=== PATIENT | male | born 1960 | race Caucasian/White ===

== ENCOUNTER 2018-12-25 09:09 | Inpatient (IN) ==
--- NOTE | 2018-12-16 07:51 | History & Physical Report ---
Date of Service December 16, 2018 date of surgery: 12-25-18 Assessment & Plan (1) Tricompartment osteoarthritis of right knee: Further care discussed with patient and at this point in time has failed conservative measures and would like to proceed with a right total knee replacement. Plan on discharge will be home with home health physical therapy. DVT prophalaxis with TEDs, SCDs and will also place on aspirin 81 mg p.o. b.i.d. for a month postop. Patient will have follow up appointment in our office two weeks post op for staple/suture removal and re-evaluation. Patient otherwise has no other questions or concerns. History of Present Illness Chief Complaint: right knee pain Primary Care Provider: Kaushik Galdamez Rodo is a 58 year old male who complains of right knee pain, presents for pre- op evaluation prior to a Right total knee replacement by dr Stark at [facility]. he complains of pain, crepitus, decreased range of motion, instability and stiffness in the right knee. he states that the symptoms have been chronic and non-traumatic. Rodo states that the symptoms occur constantly with intermittent worsening. Currently the patient states that the symptoms are moderate-severe and rates it as a 6/10. The pain is described as aching, sharp and throbbing. The symptoms occur continuously. The symptoms are aggravated by ascending stairs, daily activities, first steps while awake walking. Prior NSAIDs include Ibuprofen and Aleve. He has been treated with previous visco and cortisone injections in the past without much relief. he had prior right knee scope, PMM and PLM with chondroplasty in 2016. Allergies Allergy/AdvReac Type Severity Reaction Status Date / Time hydromorphone Allergy Unknown RASH,ITCHIN Verified 12/12/18 14:52 G,SOB moxifloxacin Allergy Unknown TROUBLE Verified 12/12/18 14:52 BREATHING,RASH, VERTIGO Ektiudf-Cxq-Eaj Reductase AdvReac Unknown "DRAINED Verified 12/12/18 15:53 Inhibitor MY LEGS" Home Medications Home Medications Medication Instructions Recorded Confirmed Type acetaminophen [Acetaminophen Extra 500 - 1,000 mg PO UD PRN 12/12/18 12/12/18 History Strength] aspirin-caffeine [Nehemias Back and 1 - 2 tab PO UD PRN 12/12/18 12/12/18 History Body] bisoprolol fumarate 5 mg PO QAM 12/12/18 12/12/18 History ergocalciferol (vitamin D2) 50,000 unit WK 12/12/18 12/12/18 History [Vitamin D2] eszopiclone 2 mg PO HS 12/12/18 12/12/18 History famotidine 20 mg PO QAM 12/12/18 12/12/18 History magnesium 250 mg PO QAM 12/12/18 12/12/18 History potassium 99 mg PO QAM 12/12/18 12/12/18 History vitamin E 400 unit PO QAM 12/12/18 12/12/18 History Past Med/Surg History Medical History Acid reflux Fear of needles History of anesthesia reaction WITH L TKA ([facility], 5-7 YR AGO) AND FOOT SURGERY ([facility], 4 YR AGO) - NERVE BLOCK DID NOT WORK FOR BOTH PROCEDURES - UNABLE TO OBTAIN FURTHER DETAILS History of asthma TRIGGERED BY PET DANDER LAST USE OF INHALER > 1 YR AGO, CURRENTLY NONE, PRESCRIPTION OUT DATED Hyperlipidemia Hypertension Leg cramps Light headedness & DIZZINESS - STRESS TEST & ECHO 2 WEEKS AGO Low vitamin D level Memory problem WORSENING WITH AGE Snores PT REPORTS NEEDS SLEEP APNEA TEST/PLANNING TO GET DONE AFTER KNEE SURGERY Surgical History History of biopsy TESTED FOR LYMPHOMA - NEGATIVE History of cardiac cath 10 YR AGO, BREATHING HARD - NO FINDINGS History of cholecystectomy History of colonoscopy History of foot surgery R FOOT (PIECE OF BONE FROM R HIP USED IN FOOT) History of total left knee replacement Family History Mother Family history of lung cancer Uncle Family history of Hodgkins disease Family history of prostate cancer Grandfather Family history of cancer Social History Preferred Language: Singaporean Communication Ability: Effective Cuprous Chloride Helper Required: No Beliefs That Will Affect Care: Temple Temple Beliefs: SABIANISM Current Living Situation: Spouse Other Information That Helps Us Care for You: No Feels Safe at Home: Yes Smoking Status: Former smoker Tobacco Type: cigarettes and cigars Cigarettes Per Day: OCCASSIONAL CIGAR, ONCE EVERY 5 YRS - ADVISED - NPO Do You Dip or Chew Tobacco: Yes (ADVISED NPO) Smoking End Date: A[age] - QUIT AT 17.5 YR Hx Alcohol Use: Yes Alcohol type: beer and wine Review of Systems Review of Systems: All systems reviewed & are unremarkable except as noted in HPI & below Constitutional: no fever, no chills and no sweats Respiratory: no cough and no dyspnea Cardiovascular: no chest pain, no dyspnea and no orthopnea Gastrointestinal: no abdominal pain, no nausea and no vomiting Musculoskeletal: as per Subjective / HPI Physical Exam Physical Exam: Ht: 5ft 9in Wt: 119.7kg BP: 150/78 Pulse: 82 Constitutional: WD/WN, vitals as above no acute distress Respiratory: normal respiratory effort, lungs clear to auscultation no respiratory distress, no labored breathing and does not use accessory muscles Cardiovascular: RRR, no murmur, no edema Gastrointestinal (Abdomen): normal bowel sounds, soft, nontender, no hepatosplenomegaly Musculoskeletal: Right Knee Exam He ambulates with a limp, overall varus alignment, no atrophy or ecchymosis, mild effusion, diffuse tenderness to the knee greatest over medial compartment, there is crepitation with motion, Patella position neutral, shant's negative, Gabriela's - lateral positive, Gabriela's - medial positive, Posterior drawer- negative, anterior drawer negative, valgus stress negative, varus stress negative, no extensor lag, pain with active range of motion, less pain with pass tianna painful ROM, Range of motion 0/3/110. No pain with active/passive ROM of ankle. Lower extremity strength normal. Lower extremity neuro-vascular is normal Results & Data Diagnostic Findings Right Knee series confirms advanced degenerative changes to the right knee, with narrowing of the medial compartment and patello-femoral joint with patellar spurring noted, findings showing joint space narrowing of the medial compartment and patello-femoral joint, osteophyte formation and subchondral sclerosis noted. overall varus alignment. no acute bony pathology noted.
--- NOTE | 2018-12-16 09:42 | PAT Medication Instructions ---
Medication Instructions Date of Service December 16, 2018 Home Medications acetaminophen [Acetaminophen Extra Strength] 500 - 1,000 mg PO NEEDED aspirin-caffeine [Nehemias Back and Body] 1 - 2 tab PO NEEDED bisoprolol fumarate 5 mg PO QAM ergocalciferol (vitamin D2) [Vitamin D2] 50,000 unit WK eszopiclone 2 mg PO HS famotidine 20 mg PO QAM magnesium 250 mg PO QAM potassium 99 mg PO QAM vitamin E 400 unit PO QAM Continue as directed ergocalciferol (vitamin D2) [Vitamin D2] 50,000 unit WK STOP taking 2 weeks before surgery vitamin E 400 unit PO QAM DO NOT take the morning of surgery magnesium 250 mg PO QAM potassium 99 mg PO QAM aspirin-caffeine [Nehemias Back and Body] 1 - 2 tab PO NEEDED Take morning of surgery With a small sip of water, OTHERWISE NOTHING TO EAT OR DRINK AFTER MIDNIGHT: famotidine 20 mg PO QAM bisoprolol fumarate 5 mg PO QAM acetaminophen [Acetaminophen Extra Strength] 500 - 1,000 mg PO NEEDED (if needed; stop 4 hours before surgery) Take evening before surgery eszopiclone 2 mg PO HS acetaminophen [Acetaminophen Extra Strength] 500 - 1,000 mg PO NEEDED (if needed) Other Notes If you have any questions please call us at [phone] or [phone] or [phone] or [phone]
--- NOTE | 2018-12-16 15:35 | Anesthesiology Consultation ---
Date of Service December 16, 2018 Assessment & Plan (1) Encounter for pre-operative examination: Chart Review Chart Review: Acceptable Risk for Surgery and Patient seen in Pre Admission Testing Consults Requested medical (Dr. Galdamez (12/18)) Patient was seen on 12/18 by PCPs office for preoperative evaluation prior to upcoming surgery. Per note from that visit, "Pre-op labs and CXR received, reviewed, and normal. Gunnar is fully cleared for procedure." Teaching & Discussion Pre-Anesthesia Teaching/Discussion Notes: Instructed NPO after midnight before surgery, except medications with 15 cc of water. Medication instructions provided according to the PAT guidelines. History Surgery Operation Date: 12/25/18 13:35 Proposed Procedures p Right Total Knee Arthroplasty; Left Knee Pes Bursa Cortisone Injection - Kaushik Stark DO Height/Weight Height: 5 ft 9 in Weight: 119.7 kg Allergies Allergy/AdvReac Type Severity Reaction Status Date / Time hydromorphone Allergy Unknown RASH,ITCHIN Verified 12/12/18 14:52 G,SOB moxifloxacin Allergy Unknown TROUBLE Verified 12/12/18 14:52 BREATHING,RASH, VERTIGO Evnhxbt-Vul-Quz Reductase AdvReac Unknown "DRAINED Verified 12/12/18 15:53 Inhibitor MY LEGS" Medications Home Medications Medication Instructions Recorded Confirmed Last Taken acetaminophen [Acetaminophen Extra 500 - 1,000 mg PO UD PRN 12/12/18 12/12/18 Unknown Strength] aspirin-caffeine [Nehemias Back and 1 - 2 tab PO UD PRN 12/12/18 12/12/18 Unknown Body] bisoprolol fumarate 5 mg PO QAM 12/12/18 12/12/18 12/12/18 ergocalciferol (vitamin D2) 50,000 unit WK 12/12/18 12/12/18 Unknown [Vitamin D2] eszopiclone 2 mg PO HS 12/12/18 12/12/18 12/11/18 famotidine 20 mg PO QAM 12/12/18 12/12/18 12/12/18 magnesium 250 mg PO QAM 12/12/18 12/12/18 Unknown potassium 99 mg PO QAM 12/12/18 12/12/18 Unknown vitamin E 400 unit PO QAM 12/12/18 12/12/18 Unknown Past Medical History Medical History Acid reflux Fear of needles History of asthma TRIGGERED BY PET DANDER, LAST USE OF INHALER > 1 YR AGO Hyperlipidemia Hypertension Leg cramps Low vitamin D level Memory problem WORSENING WITH AGE Osteoarthritis Snores PT REPORTS NEEDS SLEEP APNEA TEST/PLANNING TO GET DONE AFTER KNEE SURGERY Exercise / Class Metabolic Activity II 4-5 Yardwork/Stairs/Walk up hill (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 Very active. Can climb FOS. Denies CP or SOB. ) Past Family History Family History Mother Family history of lung cancer Uncle Family history of Hodgkins disease Family history of prostate cancer Grandfather Family history of cancer Past Surgical History Surgical History History of biopsy TESTED FOR LYMPHOMA - NEGATIVE History of cardiac cath 10 YR AGO, BREATHING HARD - NO FINDINGS History of cholecystectomy History of colonoscopy History of foot surgery 06/05/14: MAC #4, ETT #8.0, Oral, Grade 2 View History of total left knee replacement Past Anesthesia History No Hx of Anesthesia Complications and No Family Hx of Anesthesia Complications History of PONV No Hx of PONV and No Hx of Motion Sickness Social History Smoking Status: Former smoker tobacco type: cigarettes and cigars Smoking cigarettes per day: OCCASSIONAL CIGAR, ONCE EVERY 5 YRS - ADVISED - NPO Do You Dip or Chew Tobacco: Yes (ADVISED NPO) Smoking End Date: [age] - QUIT AT 17.5 YR Hx Alcohol Use: Yes Alcohol type: beer and wine alcohol intake frequency: other Alcohol Intake Frequency Comment: 5 DRINKS A WEEK Hx Substance Use: No substance use type: does not use Review of Systems Patient denies chest pain, shortness of breath, dyspnea on exertion, cough, wheezing, palpitations. +Joint Pain (Knees, Hands/Fingers, Back) +Acid Reflux (Controlled with current medications) Physical Exam Vital Signs BP: 128/73 P: 55 R: 14 T: 98.3 SPO2: 98% on RA Constitutional + obese ENMT Thyromental Distance: > or= 3.5 Finger Breadths (4) Mallampati Class: I Neck normal visual inspection, trachea midline and + facial hair (Advised to trim); neck extension not limited Respiratory normal respiratory effort Auscultation: lungs clear to auscultation bilaterally Cardiovascular Rate/Rhythm: regular rate and regular rhythm Heart Sounds: no murmur Vessels: no carotid bruit Neurologic moves all extremities Psychiatric Orientation: alert and oriented x 3 Testing Laboratory Results 12/16/18 15:14 12/16/18 15:14 PT 10.9 Seconds (9.0-12.0) 12/16/18 15:14 INR 1.1 (0.9-1.1) 12/16/18 15:14 APTT 27.0 Seconds (21.0-31.0) 12/16/18 15:14 Hemoglobin A1c 6.7 % (4.5-5.6) H 12/16/18 15:14 Urine Color Yellow 12/16/18 Unknown Urine Appearance Clear (Clear) 12/16/18 Unknown Urine pH 5.0 (4.5-7.5) 12/16/18 Unknown Ur Specific [employer] 1.023 (1.000-1.030) 12/16/18 Unknown Urine Protein Negative (Negative) 12/16/18 Unknown Urine Glucose (UA) Negative (Negative) 12/16/18 Unknown Urine Ketones Negative (Negative) 12/16/18 Unknown Urine Nitrite Negative (Negative) 12/16/18 Unknown Ur Leukocyte Esterase Negative (Negative) 12/16/18 Unknown Blood Type A Positive 12/16/18 15:14 Antibody Screen NEGATIVE 12/16/18 15:14 12/16/18 Unknown Urine Culture - Final Urine,Clean Catch No growth - less than 1,000 colonies/mL. Electrocardiogram Date: 10/16/18 Findings: + NSR @ (58) Incomplete RBBB Chest X-Ray Date: 12/16/18 Findings: + NAD Echocardiogram Date: 11/04/18 Normal echocardiographic study
[2018-12-16 15:58] LABS: Basophils # (auto) 0.05 K/uL (0-0.2); Basophils % (auto) 0.8 %; Eosinophils % (auto) 1.5 %; Hematocrit (blood only) 40.8 % (42-52); Hemoglobin 14.3 g/dL (14.0-18.0); Immature Granulocytes # (auto) 0.02 K/uL (0.00-0.02); Immature Granulocytes % (auto) 0.3 %; Lymphocytes % (auto) 22.7 %; Mean Corpuscular Volume 89.5 fL (80-100); Mean Platelet Volume 11.5 fL (7.4-10.4); Monocytes # (auto) 0.49 K/uL (0.11-0.59); Monocytes % (auto) 7.4 %; Neutrophils # (auto) 4.46 K/uL (1.4-6.5); Neutrophils % (auto) 67.3 %; Platelet Count 225 K/uL (130-400); RDW Coefficient of Variation 12.9 % (11.5-14.5); RDW Standard Deviation 41.5 fL (36.4-46.3); Red Blood Count 4.56 M/uL (4.7-6.1); White Blood Count 6.62 K/uL (4.8-10.8)
[2018-12-16 16:01] LABS: Appearance Urine Clear (Clear); Bilirubin Urine Negative (Negative); Blood Urine Negative (Negative); Color Urine Yellow; Glucose Urine UA Negative (Negative); Ketones Urine Negative (Negative); Leukocyte Esterase Urine Negative (Negative); Nitrite Urine Negative (Negative); Protein Urine Negative (Negative); Specific Gravity Urine 1.023 (1.000-1.030); Urobilinogen Urine Negative (Negative)
[2018-12-16 16:09] LABS: Albumin Level 3.7 gm/dl (3.4-5.0); BUN Creatinine Ratio 16.5 (10-20); Calcium 9.1 mg/dl (8.5-10.1); Creatinine Clr Calc Pharmacy 122.4 ml/min; Est GFR (African American) 111.6; Est GFR (Non-African American) 96.3
[2018-12-16 16:12] LABS: INR 1.1 (0.9-1.1); Prothrombin Time 10.9 Seconds (9.0-12.0)
--- NOTE | 2018-12-16 16:27 | XRay Report ---
TWO VIEW CHEST CLINICAL HISTORY: Preoperative examination. FINDINGS: PA and lateral chest radiographs are obtained. No prior studies are available for compariso n at the time of dictation. The cardiomediastinal silhouette is unremarkable. The lungs and pleura l spaces are clear. There is no pneumothorax. The bony thorax appears intact. Cholecystectomy clips a re seen in the right upper quadrant. IMPRESSION: No active disease in the chest. Electronically signed by: Qasim Aguayo M.D. 12/16/2018 4:26 PM
[2018-12-17 08:00] LABS: Estimated Average Glucose 146 mg/dl; Hemoglobin A1C 6.7 % (4.5-5.6)
[~2018-12-25 09:09] MED LIST: ACETAMINOPHEN 500 MG TAB PO SCH; BUPIVACAINE 0.5 % 5 MG/1 ML PF 10ML VIAL ONE; CEFAZOLIN 3000MG 72.5 ML IV SCH; CeleBREX 200 MG CAP PO SCH; EPINEPHrine INJ 1 MG/ML AMP ONE; FAMOTIDINE 20 MG TAB PO SCH; GABAPENTIN 600 MG DOSE PO SCH; LR 500ML BOLUS, THEN 15ML/HR IV SCH; METOCLOPRAMIDE HCL 10 MG TABLET PO SCH; ROPIVACAINE 0.5% 5 MG/ML 30 ML VIAL ONE; dexAMETHasone 4 MG TAB PO SCH
[2018-12-25] MEDS ORDERED: MIDAZOLAM HCL 1 MG/ML 2ML VIAL ONE ×2 (10:01→10:18)
[2018-12-25] MEDS ORDERED: DEXAMETHASONE SOD INJ 4 MG/ML VIAL ONE (10:01)
[2018-12-25] MEDS ORDERED: GLYCOPYRROLATE 0.2 MG/ML VIAL ONE (10:01)
[2018-12-25] MEDS ORDERED: LIDOCAINE HCL 2% 2 ML VIAL/AMP(20MG/ML) INFIL ONE (10:01)
[2018-12-25] MEDS ORDERED: PROPOFOL IV EMULSION 10 MG/ML 20 ML VIAL IV ONE ×3 (10:01→12:51)
[2018-12-25] MEDS ORDERED: ONDANSETRON INJ 2 MG/ML 2 ML VIAL ONE (10:01)
[2018-12-25] MEDS ORDERED: KETAMINE HCL INJ 50 MG/ML 10 ML VIAL ONE (10:02)
--- NOTE | 2018-12-25 10:36 | History & Physical Bridge Note ---
Date of Service December 25, 2018 History & Physical Bridge Note I have examined the patient, reviewed the History & Physical and in the interval since the performance of the History & Physical I have noted the following changes of clinical significance: no changes noted
[2018-12-25] MEDS ORDERED: ATROPINE SULFATE 0.1 MG/ML 10ML SYR IV PRN (10:55)
[2018-12-25] MEDS ORDERED: PHENYLEPHRINE 100MCG/ML 5ML SYR IV PRN (10:55)
[2018-12-25] MEDS ORDERED: ePHEDrine sulfate 50 MG/ML AMP IV PRN (10:55)
[2018-12-25] MEDS ORDERED: ONDANSETRON INJ 2 MG/ML 2 ML VIAL IV PRN ×2 (10:55→14:27)
[2018-12-25] MEDS ORDERED: LABETALOL HCL IV 5 MG/ML 20ML IV PRN (10:55)
[2018-12-25] MEDS ORDERED: fentaNYL citrate 100 MCG/2 ML VIAL IV PRN (10:55)
[2018-12-25] MEDS ORDERED: BACITRACIN INJ 50,000 UNIT VIAL ONE (11:23)
[2018-12-25] MEDS ORDERED: fentaNYL citrate 100 MCG/2 ML VIAL ONE (11:28)
[2018-12-25] MEDS ORDERED: TRIAMCINOLONE ACET 40 MG/ML VIAL ONE (11:42)
[2018-12-25] MEDS ORDERED: BUPIVACAINE 0.5 % 5 MG/1 ML MPF 30ML VIAL ONE (11:42)
[2018-12-25] MEDS ORDERED: ROPIVACAINE 0.5% HCL/PF 150 MG, BUPIVACAINE 0.5% MPF 30 ML, EPINEPHrine 30MG/30ML (OR U... INFIL SCH (12:30)
--- NOTE | 2018-12-25 13:04 | Operative Report ---
Post Operative Report Pre & Post Diagnosis Operation Date: 12/25/18 12:20 Pre-Op Diagnosis: Right Knee Osteoarthritis, Left knee Pes Bursitis Post-Op Diagnosis: Right Knee Osteoarthritis, Left knee Pes Bursitis Procedure Operation Date: 12/25/18 12:20 Actual Procedures p Right Total Knee Arthroplasty; Left Knee Pes Bursa Cortisone Injection using 80 mg Kenalog 3 cc half percent plain Marcaine right total knee arthroplasty utilizing [employer] journey to non-block total knee arthroplasty size 6 femur size 6 tibia size 10 poly-35 oval patella- Kaushik Stark DO Surgeon Kaushik Stark DO Vinyl Cutter Awais NAJERA Estimated Blood Loss 5 Findings Consistent with Post-Op Diagnosis Patient presents with severe end-stage tricompartmental degenerative joint disease right knee varus alignment subchondral sclerosis cystic changes marginal osteophytes moderate to large effusion varus alignment no response to conservative management Specimens Bone cartilage Drains Medium bore Hemovac Complications none Disposition Accompanied Patient To Recovery: No Disposition: Recovery Room Indications Patient presents 58-year-old white male with severe end-stage tricompartmental degenerative joint disease of the right knee is been no response to conservative management including Visco supplementation cortical steroid injection relative rest activity modification the above intraoperative findings noted as well as a left knee peds anserine bursitis Description of Procedure After proper prepping and draping of the right lower extremity and identification of the patientAfter proper prepping and draping of the Right lower extremity anterior midline incision was made over the region of the extensor extensor mechanism after meticulous hemostasis was obtained and maintained in subcutaneous tissues a medial parapatellar incision was made The patella was subluxed lateralward the medial lateral gutter were cleaned from any hypertrophic synovitis and scar tissue of the distal femoral block was placed and the distal femoral osteotomy cut was made subsequently the chamfers anterior and posterior osteotomy cuts were made utilizing the 4-in-1 block the tibia was subsequently subluxed anteriorward medial and ateral meniscal remnants were excised in their entirety remnants of the anterior and posterior cruciate ligaments were excised in their entirety excellent exposure of the proximal tibia was obtained the tibial osteotomy guide was placed on the proximal tibial osteotomy cut was made once again the knee was irrigated with copious amounts of sterile saline solution the patella was subsequently everted lateralward thickened scar tissue around the patella was removed the patella was subsequently cut utilizing a freehand technique and was drilled prepared for final preparation and placement of patella socially flexion-extension gaps were checked and the equal and symmetric trials were placed to the appropriate femoral and tibial trials with poly-spacer being placed for equal flexion and extension gaps and full range of motion including extension to 0 and flexion to 140 the trial components after having been taken to recovery range of motion was subsequently removed meticulous hemostasis was obtained and maintained subsequently a knee block injection of joint cocktail including ropivacaine 0.5% 150 mg. Bupivacaine 0.5% epinephrine 1-200,030 mL's toradol 30 mg dexamethasone 4 mg ketamine 10 mg clonidine 100 micrograms normal saline solution 30 mg was infiltrated into the soft tissues of the posterior knee medial lateral gutters and periosteal synovium special attention was paid to protect neurovascular structures at all times subsequently trial components having been removed the knee was irrigated with sterile saline solution. debris was removed the proximal tibia was subsequently prepared and was made ready for the placement of the tibial component tibial component was also cemented and tamped into position the femoral component was subsequently placed and cemented in the position the patellar component was subsequently cemented in position because hemostasis once again obtained and maintained wound having been thoroughly irrigated with debridement and debridement lavage was performed as well as a medial parapatellar incision closed with #1 Vicryl in interrupted fashion subcutaneous was closed with #2 Vicryl skin was closed with skin clips. PA-C was necessary for prepping and drapping as well as wound closure of deep fascia Sub cutaneous tissue and skin and was necessary for the case. A sterile compressive dressing was placed patient was taken to recovery in stable condition of report dictated by Lincoln the left pes anserine bursa was injected under sterile conditions using 80 mg of Kenalog 3 cc of half percent plain Marcaine I attest to the content of the Intraoperative Record and any orders documented therein. Any exceptions are noted below. I attest to the content of the Intraoperative Record and any orders documented therein. Any exceptions are noted below.
[2018-12-25] MEDS ORDERED: MEPERIDINE HCL 25 MG/ML CARP IV PRN (13:42)
--- NOTE | 2018-12-25 13:59 | Anesthesiology Progress Note ---
Date of Service December 25, 2018 Anesthesia Post Procedure Vital Signs Vital Signs: Temp Pulse Pulse Resp BP Pulse Ox 12/25/18 13:50 61 18 115/60 97 12/25/18 13:43 36.7 C 60 12 121/63 97 12/25/18 10:06 36.6 C 82 20 159/88 H 94 Pain Intensity Right Knee: Pain Intensity: 2 Transfer of Care Handoff Completed per policy Notes Mental Status: alert / awake / arousable Patient Amnestic to Procedure: Yes Nausea / Vomiting: adequately controlled Pain: adequately controlled Airway Patency, RR, SpO2: stable & adequate BP & HR: stable & adequate Hydration State: stable & adequate Neuraxial Anesthesia: was administered and sensory block is resolving Anesthetic Complications: no major complications apparent and Pt Satisfied with anesthetic care
--- NOTE | 2018-12-25 14:15 | XRay Report ---
XR knee RT 2V routine HISTORY: 58 years-old Male Surgical Post Op right knee total joint arthroplasty. COMPARISON: None available TECHNIQUE: 2 views of the right knee FINDINGS: Right knee total joint arthroplasty and patellar resurfacing. Expected postsurgical soft tissue swell ing and deep tissue air with surgical drainage catheter in place. Satisfactory alignment without acut e fracture or retained foreign body. IMPRESSION: Satisfactory alignment of the right knee total joint arthroplasty. The above report was generated using voice recognition software. It may contain grammatical, syntax o r spelling errors. Electronically signed by: Alfonso Santos M.D. 12/25/2018 2:14 PM
[2018-12-25] MEDS ORDERED: METOCLOPRAMIDE HCL INJ 5 MG/ML 2 ML VIAL IV PRN (14:27)
[2018-12-25] MEDS ORDERED: NALOXONE HCL 0.4 MG/1 ML VIAL/CARP IV PRN (14:27)
[2018-12-25] MEDS ORDERED: MAGNESIUM HYDROXIDE SUSP 30 ML UDC PO PRN (14:27)
[2018-12-25] MEDS ORDERED: BISACODYL 10 MG SUPP PR PRN (14:27)
[2018-12-25] MEDS ORDERED: ALUMINUM/MAGNESIUM SUSP 30 ML UDC PO PRN (14:27)
[2018-12-25] MEDS: SODIUM CHLORIDE 0.9% 1000ML 1,000 ML IV SCH (17:05)
[2018-12-25] MEDS: KETOROLAC 30 MG/ML VIAL IV SCH ×2 (19:33→23:15)
[2018-12-25] MEDS: CEFAZOLIN 2000MG 2,000 MG/15 ML SYR IV SCH (19:35)
[2018-12-25] MEDS: SENNA 8.6 MG TAB PO SCH (21:01)
[2018-12-25] MEDS: ASPIRIN 81 MG ECTAB PO SCH (21:01)
[2018-12-25] MEDS: DOCUSATE SODIUM 100 MG CAP PO SCH (21:02)
[2018-12-25] MEDS: ACETAMINOPHEN 500 MG TAB PO SCH (21:02)
[2018-12-25] MEDS: ESZOPICLONE 2 MG TABLET PO SCH (23:14)
[2018-12-26] MEDS: SODIUM CHLORIDE 0.9% 1000ML 1,000 ML IV SCH (02:44)
[2018-12-26] MEDS: OXYCODONE HCL IR 5 MG TAB (IMMEDIATE RELEASE) PO PRN ×3 (03:09→23:41)
[2018-12-26] MEDS: CEFAZOLIN 2000MG 2,000 MG/15 ML SYR IV SCH (03:10)
[2018-12-26] MEDS: KETOROLAC 30 MG/ML VIAL IV SCH ×2 (05:20→11:53)
[2018-12-26] MEDS: ACETAMINOPHEN 500 MG TAB PO SCH ×3 (05:20→21:36)
[2018-12-26 07:47] LABS: Hemoglobin 11.1 g/dL (14.0-18.0); Mean Corpuscular Hgb Conc 34.7 g/dL (32-36); Mean Corpuscular Volume 89.4 fL (80-100); Mean Platelet Volume 11.7 fL (7.4-10.4); Platelet Count 191 K/uL (130-400); RDW Coefficient of Variation 12.5 % (11.5-14.5); RDW Standard Deviation 40.4 fL (36.4-46.3); Red Blood Count 3.58 M/uL (4.7-6.1); White Blood Count 14.04 K/uL (4.8-10.8)
[2018-12-26 07:52] LABS: BUN Creatinine Ratio 17.1 (10-20); Calcium 8.5 mg/dl (8.5-10.1); Creatinine Clr Calc Pharmacy 114.4 ml/min; Potassium 4.4 mmol/L (3.5-5.1)
--- NOTE | 2018-12-26 07:55 | Orthopedic Progress Note ---
Date of Service December 26, 2018 Assessment & Plan (1) Status post total right knee replacement: POD #1 s/p Right TKA pt/ot dvt proph with [facility]/SCD/ASA plan for d/c home with HHPT when stable Subjective POD #1 s/p Right TKA and left knee pes bursa injection denies any pain in the left knee Review of Systems Constitutional: no fever, no chills and no sweats Respiratory: no cough and no dyspnea Cardiovascular: no chest pain and no dyspnea Gastrointestinal: no abdominal pain, no nausea and no vomiting Physical Exam Physical Exam: Vital Signs Temp Pulse Pulse Pulse Resp BP Pulse Ox 12/26/18 03:36 36.4 C L 64 18 102/62 93 12/25/18 22:55 36.9 C 62 16 119/63 96 12/25/18 21:20 96 12/25/18 20:45 36.8 C 78 18 125/66 92 12/25/18 20:31 36.8 C 78 18 125/66 92 12/25/18 18:07 36.6 C 67 18 120/66 94 12/25/18 16:23 36.4 C L 68 17 118/67 97 12/25/18 15:15 36.5 C 61 17 131/74 97 12/25/18 14:47 36.5 C 60 16 122/73 94 12/25/18 14:15 36.6 C 59 L 16 112/68 95 12/25/18 14:00 36.7 C 57 L 12 110/56 L 97 12/25/18 13:50 61 18 115/60 97 12/25/18 13:43 36.7 C 60 12 121/63 97 12/25/18 10:06 36.6 C 82 20 159/88 H 94 Intake and Output 12/25/18 12/26/18 12/26/18 22:59 06:59 14:59 Intake Total 1290 / 3112.5 Output Total 2075 / 3010 675 / 3010 Balance -2075 / 102.5 615 / 102.5 Intake: IV 1290 / 2162.5 Nss 1000ML 1,0 00 ml @ 100 mls/ 1290 / 1290 hr IV .Q10H [facility] Rx#:[id number] Output: Urine 1300 / 1900 600 / 1900 Drain Output 775 / 1105 75 / 1105 Right Knee Hem ovac 775 / 1105 75 / 1105 Constitutional: WD/WN, vitals as above no acute distress Musculoskeletal: Right Leg: NVDI, calf SNT, negative kike sign. DP palpable, able to wiggle toes/ankle movement without difficulty. dressing clean dry and intact. Results & Data Vital Signs (Past 12 Hours) Vital Signs Temp Pulse Pulse Resp BP Pulse Ox 12/26/18 03:36 36.4 C L 64 18 102/62 93 12/25/18 22:55 36.9 C 62 16 119/63 96 12/25/18 21:20 96 12/25/18 20:45 36.8 C 78 18 125/66 92 12/25/18 20:31 36.8 C 78 18 125/66 92 Laboratory Results Laboratory Results WBC 14.04 K/uL (4.8-10.8) H 12/26/18 06:48 RBC 3.58 M/uL (4.7-6.1) L 12/26/18 06:48 Hgb 11.1 g/dL (14.0-18.0) L 12/26/18 06:48 Hct 32.0 % (42-52) L 12/26/18 06:48 MCV 89.4 fL (80-100) 12/26/18 06:48 MCH 31.0 pg (25-34) 12/26/18 06:48 MCHC 34.7 g/dL (32-36) 12/26/18 06:48 RDW Std Deviation 40.4 fL (36.4-46.3) 12/26/18 06:48 RDW Coeff of Demarco 12.5 % (11.5-14.5) 12/26/18 06:48 Plt Count 191 K/uL (130-400) 12/26/18 06:48 MPV 11.7 fL (7.4-10.4) H 12/26/18 06:48 Immature Gran % (Auto) 0.3 % 12/16/18 15:14 Neut % (Auto) 67.3 % 12/16/18 15:14 Lymph % (Auto) 22.7 % 12/16/18 15:14 [place] % (Auto) 7.4 % 12/16/18 15:14 Eos % (Auto) 1.5 % 12/16/18 15:14 Baso % (Auto) 0.8 % 12/16/18 15:14 Immature Gran # (Auto) 0.02 K/uL (0.00-0.02) 12/16/18 15:14 Neut # (Auto) 4.46 K/uL (1.4-6.5) 12/16/18 15:14 Lymph # (Auto) 1.50 K/uL (1.2-3.4) 12/16/18 15:14 [place] # (Auto) 0.49 K/uL (0.11-0.59) 12/16/18 15:14 Eos # (Auto) 0.10 K/uL (0-0.5) 12/16/18 15:14 Baso # (Auto) 0.05 K/uL (0-0.2) 12/16/18 15:14 PT 10.9 Seconds (9.0-12.0) 12/16/18 15:14 INR 1.1 (0.9-1.1) 12/16/18 15:14 APTT 27.0 Seconds (21.0-31.0) 12/16/18 15:14 PTT Ratio 1.0 12/16/18 15:14 Sodium 139 mmol/L (136-145) 12/26/18 06:48 Potassium 4.4 mmol/L (3.5-5.1) 12/26/18 06:48 Chloride 108 mmol/L (98-107) H 12/26/18 06:48 Carbon Dioxide 25 mmol/L (21-32) 12/26/18 06:48 Anion Gap 5.0 (3-11) 12/26/18 06:48 BUN 15 mg/dl (7-18) 12/26/18 06:48 Creatinine 0.88 mg/dl (0.6-1.4) 12/26/18 06:48 Est Cr Clr Drug Dosing 114.4 ml/min 12/26/18 06:48 Est GFR ( Amer) 109.0 12/26/18 06:48 Est GFR (Non-Af Amer) 94.0 12/26/18 06:48 BUN/Creatinine Ratio 17.1 (10-20) 12/26/18 06:48 Glucose 165 mg/dl (70-99) H 12/26/18 06:48 Estimat Average Glucose 146 mg/dl 12/16/18 15:14 Hemoglobin A1c 6.7 % (4.5-5.6) H 12/16/18 15:14 Calcium 8.5 mg/dl (8.5-10.1) 12/26/18 06:48 Albumin 3.7 gm/dl (3.4-5.0) 12/16/18 15:14 Urine Color Yellow 12/16/18 Unknown Urine Appearance Clear (Clear) 12/16/18 Unknown Urine pH 5.0 (4.5-7.5) 12/16/18 Unknown Ur Specific [place] 1.023 (1.000-1.030) 12/16/18 Unknown Urine Protein Negative (Negative) 12/16/18 Unknown Urine Glucose (UA) Negative (Negative) 12/16/18 Unknown Urine Ketones Negative (Negative) 12/16/18 Unknown Urine Blood Negative (Negative) 12/16/18 Unknown Urine Nitrite Negative (Negative) 12/16/18 Unknown Urine Bilirubin Negative (Negative) 12/16/18 Unknown Urine Urobilinogen Negative (Negative) 12/16/18 Unknown Ur Leukocyte Esterase Negative (Negative) 12/16/18 Unknown Blood Type A Positive 12/16/18 15:14 Antibody Screen NEGATIVE 12/16/18 15:14 Vital Signs Temp 36.4 C L 12/26/18 03:36 Pulse 64 12/26/18 03:36 Resp 18 12/26/18 03:36 BP 102/62 12/26/18 03:36 Pulse Ox 93 12/26/18 03:36 Intake & Output 12/25/18 12/26/18 12/26/18 18:59 06:59 18:59 Intake Total 1822.5 / 3112.5 1290 / 3112.5 Output Total 1660 / 3010 1350 / 3010 Balance 162.5 / 102.5 -60 / 102.5 Weight 117.662 kg Intake: IV 872.5 / 2162.5 1290 / 2162.5 Ancef 3000MG 72.5 ml @ 130 mls/ 72.5 / 72.5 hr IV PREOP [facility] Rx#:[id number] Lr 1,000 ml @ 15 mls/hr IV . 800 / 800 Q24H [facility] Rx#:[id number] Nss 1000ML 1,000 ml @ 100 mls/ 1290 / 1290 hr IV .Q10H [facility] Rx#:[id number] IV Perioperative 950 / 950 Output: Urine 900 / 1900 1000 / 1900 Estimated Blood Loss 5 / 5 Drain Output 755 / 1105 350 / 1105 Right Knee Hemovac 755 / 1105 350 / 1105 Diagnostic Findings XR knee RT 2V routine HISTORY: 58 years-old Male Surgical Post Op right knee total joint arthroplasty. COMPARISON: None available TECHNIQUE: 2 views of the right knee FINDINGS: Right knee total joint arthroplasty and patellar resurfacing. Expected postsurgical soft tissue swelling and deep tissue air with surgical drainage catheter in place. Satisfactory alignment without acute fracture or retained fo reign body. IMPRESSION: Satisfactory alignment of the right knee total joint arthroplasty.
[2018-12-26] MEDS: TOCOPHERYL, DL-ALPHA 400 UNITS CAP PO SCH (08:33)
[2018-12-26] MEDS: DOCUSATE SODIUM 100 MG CAP PO SCH ×2 (08:33→20:39)
[2018-12-26] MEDS: FAMOTIDINE 20 MG TAB PO SCH (08:33)
[2018-12-26] MEDS: ASPIRIN 81 MG ECTAB PO SCH ×2 (08:33→20:39)
[2018-12-26] MEDS: MAGNESIUM OXIDE 400 MG TAB PO SCH (08:33)
[2018-12-26] MEDS: MULTIVITAMIN TAB PO SCH (08:33)
[2018-12-26] MEDS ORDERED: NON-FORMULARY MEDICATION (Potassium 99 MG) PO SCH (09:00)
--- NOTE | 2018-12-26 09:37 | Anesthesiology Progress Note ---
Date of Service December 26, 2018 Anesthesia Post Procedure Vital Signs Vital Signs: Temp Pulse Pulse Pulse Resp BP Pulse Ox 12/26/18 07:00 36.6 C 58 L 16 127/68 97 12/26/18 03:36 36.4 C L 64 18 102/62 93 12/25/18 22:55 36.9 C 62 16 119/63 96 12/25/18 21:20 96 12/25/18 20:45 36.8 C 78 18 125/66 92 12/25/18 20:31 36.8 C 78 18 125/66 92 12/25/18 18:07 36.6 C 67 18 120/66 94 12/25/18 16:23 36.4 C L 68 17 118/67 97 12/25/18 15:15 36.5 C 61 17 131/74 97 12/25/18 14:47 36.5 C 60 16 122/73 94 12/25/18 14:15 36.6 C 59 L 16 112/68 95 12/25/18 14:00 36.7 C 57 L 12 110/56 L 97 12/25/18 13:50 61 18 115/60 97 12/25/18 13:43 36.7 C 60 12 121/63 97 12/25/18 10:06 36.6 C 82 20 159/88 H 94 Pain Intensity Right Knee: Pain Intensity: 2 Notes Mental Status: alert / awake / arousable and participated in evaluation Patient Amnestic to Procedure: Yes Nausea / Vomiting: adequately controlled Pain: adequately controlled Airway Patency, RR, SpO2: stable & adequate BP & HR: stable & adequate Hydration State: stable & adequate Neuraxial Anesthesia: was administered and sensory block resolved Anesthetic Complications: no major complications apparent and Pt Satisfied with anesthetic care
[2018-12-26] MEDS ORDERED: PHARMACY GLYCEMIC MGMT CONSULT PRN (09:51)
[2018-12-26] MEDS ORDERED: GLUCOSE 40% GEL 15 GM TUBE PO PRN (10:00)
[2018-12-26] MEDS ORDERED: GLUCOSE 10 TABS/TUBE PO PRN (10:00)
[2018-12-26] MEDS ORDERED: CARBOHYDRATES FOR HYPOGLYCEMIA PO PRN (10:00)
[2018-12-26] MEDS ORDERED: GLUCAGON FOR INJ 1 MG VIAL IM PRN (10:00)
[2018-12-26] MEDS ORDERED: DEXTROSE 50% 50 ML SYRINGE IV PRN (10:00)
[2018-12-26] MEDS: LANTUS PER UNIT CHARGE SQ ONE ×2 (10:41→10:44)
[2018-12-26] MEDS: INSULIN ASPART 100 UNITS/ML 3 ML PEN SC SCH ×3 (12:35→20:43)
--- NOTE | 2018-12-26 14:40 | Pharmacy Report ---
Glycemic Control Consultation - Date of Service December 26, 2018 - Scope Scope: Glycemic Pharmacist consulted by Troy Dailey on 12/26/18 for glycemic control and to write orders per [facility] inpatient glycemic control protocol - Objective Weight: 117.662 kg Accuchecks BSG (last 24hrs): 12/26/18 12/26/18 06:48 12:01 Glucose 165 H POC Glucose 162 H Laboratory Data (last 24hrs): 12/26/18 06:48 Potassium 4.4 Carbon Dioxide 25 Anion Gap 5.0 Creatinine 0.88 Est Cr Clr Drug Dosing 114.4 HbA1c: Hemoglobin A1c 6.7 % (4.5-5.6) H 12/16/18 15:14 - Recent Pertinent Medications Outpatient Anti-diabetic Regimen: * N/A * A1c = 6.7 % 12/16/18 The patient is currently receiving: * Basal insulin: Lantus -- units every -- hours * Correctional Insulin: Novolog Correction per scale ACHS Goal Range: Low -- mg/dL - High -- mg/dL Correction Factor: -- mg/dL/unit * Prandial insulin: Per carb ratio of 1 unit per -- grams CHO consumed * Oral Agents: Risk Factors for Insulin Resistance: * Steroids: dexamethasone 8 mg preop; dexamethasone 4 mg topically; dexamethasone 4 mg IV intraop * Recent Surgery: POD 1 * Diet: changed to T2DM - Assessment & Plan Assessment & Plan: ASSESSMENT: * Mr Friedman is a 58 y/o M with a PMH of undiagnosed diabetes who presents for knee surgery, planned discharge tomorrow. Patient received significant amount of steroids prior to and during surgery. Fasting blood sugar today 165 mg/dL. Lunch blood sugar 162 mg/dL. * For lunch, utilized weight-based stress of 2 Novolog for coverage, will loosen for dinner onwards since effects of steroids will decrease. Patient declined Lantus coverage. * Spent significant time talking with patient about the benefits of insulin coverage. He will start to check his blood sugars at home - perhaps twice daily. I advised him to follow-up with his PCP regarding his HbA1C being slightly elevated. PLAN FOR INPATIENT GLYCEMIC CONTROL: * Basal insulin * Declined * Bolus insulin * NovoLog per scale ACHS or Q6hrs while NPO * Goal Range: Low 110 mg/dL - High 140 mg/dL * Correction Factor: 30 mg/dL/unit * Nutritional / Prandial insulin per carb ratio of 1 unit per 10 grams CHO consumed Outpatient Recommendation * Follow-up with primary care doctor for further treatment. Most likely would benefit from metformin XR 500 mg PO BIDM titrating upwards to maximum daily dose of 1000 mg BID Thank you.
[2018-12-26] MEDS: BISOPROLOL FUMARATE 5 MG PO SCH (16:38)
[2018-12-26] MEDS: CeleBREX 200 MG CAP PO SCH (20:08)
[2018-12-26] MEDS: SENNA 8.6 MG TAB PO SCH (20:39)
[2018-12-26] MEDS: ESZOPICLONE 2 MG TABLET PO SCH (23:41)
[2018-12-27] MEDS: ACETAMINOPHEN 500 MG TAB PO SCH (05:23)
--- NOTE | 2018-12-27 06:49 | Orthopedic Progress Note ---
Date of Service December 27, 2018 Assessment & Plan (1) Status post total right knee replacement: POD #2 s/p Right TKA pt/ot dvt proph with [facility]/SCD/ASA plan for d/c home with HHPT when stable, after PT today Subjective POD #2 s/p Right TKA and left knee pes bursa injection denies any pain in the left knee Review of Systems Constitutional: no fever, no chills and no sweats Respiratory: no cough and no dyspnea Cardiovascular: no chest pain and no dyspnea Gastrointestinal: no abdominal pain, no nausea and no vomiting Physical Exam Physical Exam: Vital Signs Temp Pulse Pulse Resp BP Pulse Ox 12/26/18 23:22 36.8 C 65 16 133/68 95 12/26/18 16:37 64 131/67 12/26/18 15:18 36.8 C 67 16 148/69 H 94 12/26/18 12:00 36.9 C 59 L 16 142/73 H 94 12/26/18 07:00 36.6 C 58 L 16 127/68 97 Intake and Output 12/26/18 12/26/18 12/27/18 14:59 22:59 06:59 Intake Total 515 / 755 240 / 755 Output Total 600 / 1800 1200 / 1800 Balance -85 / -1045 240 / -1045 -1200 / -1045 Intake: Oral 515 / 755 240 / 755 Output: Urine 600 / 1800 1200 / 1800 Other: Weight 117.662 kg Patient Weight 12/27/18 06:59 Weight 117.662 kg Musculoskeletal: Right Leg: NVDI, calf SNT, negative kike sign. DP palpable, able to wiggle toes/ankle movement without difficulty. MANJIT dressing clean dry and intact. Results & Data Vital Signs (Past 12 Hours) Vital Signs Temp Pulse Resp BP Pulse Ox 12/26/18 23:22 36.8 C 65 16 133/68 95 Laboratory Results Laboratory Results WBC 14.04 K/uL (4.8-10.8) H 12/26/18 06:48 RBC 3.58 M/uL (4.7-6.1) L 12/26/18 06:48 Hgb 11.1 g/dL (14.0-18.0) L 12/26/18 06:48 Hct 32.0 % (42-52) L 12/26/18 06:48 MCV 89.4 fL (80-100) 12/26/18 06:48 MCH 31.0 pg (25-34) 12/26/18 06:48 MCHC 34.7 g/dL (32-36) 12/26/18 06:48 RDW Std Deviation 40.4 fL (36.4-46.3) 12/26/18 06:48 RDW Coeff of Demarco 12.5 % (11.5-14.5) 12/26/18 06:48 Plt Count 191 K/uL (130-400) 12/26/18 06:48 MPV 11.7 fL (7.4-10.4) H 12/26/18 06:48 Immature Gran % (Auto) 0.3 % 12/16/18 15:14 Neut % (Auto) 67.3 % 12/16/18 15:14 Lymph % (Auto) 22.7 % 12/16/18 15:14 [place] % (Auto) 7.4 % 12/16/18 15:14 Eos % (Auto) 1.5 % 12/16/18 15:14 Baso % (Auto) 0.8 % 12/16/18 15:14 Immature Gran # (Auto) 0.02 K/uL (0.00-0.02) 12/16/18 15:14 Neut # (Auto) 4.46 K/uL (1.4-6.5) 12/16/18 15:14 Lymph # (Auto) 1.50 K/uL (1.2-3.4) 12/16/18 15:14 [place] # (Auto) 0.49 K/uL (0.11-0.59) 12/16/18 15:14 Eos # (Auto) 0.10 K/uL (0-0.5) 12/16/18 15:14 Baso # (Auto) 0.05 K/uL (0-0.2) 12/16/18 15:14 PT 10.9 Seconds (9.0-12.0) 12/16/18 15:14 INR 1.1 (0.9-1.1) 12/16/18 15:14 APTT 27.0 Seconds (21.0-31.0) 12/16/18 15:14 PTT Ratio 1.0 12/16/18 15:14 Sodium 139 mmol/L (136-145) 12/26/18 06:48 Potassium 4.4 mmol/L (3.5-5.1) 12/26/18 06:48 Chloride 108 mmol/L (98-107) H 12/26/18 06:48 Carbon Dioxide 25 mmol/L (21-32) 12/26/18 06:48 Anion Gap 5.0 (3-11) 12/26/18 06:48 BUN 15 mg/dl (7-18) 12/26/18 06:48 Creatinine 0.88 mg/dl (0.6-1.4) 12/26/18 06:48 Est Cr Clr Drug Dosing 114.4 ml/min 12/26/18 06:48 Est GFR ( Amer) 109.0 12/26/18 06:48 Est GFR (Non-Af Amer) 94.0 12/26/18 06:48 BUN/Creatinine Ratio 17.1 (10-20) 12/26/18 06:48 Glucose 165 mg/dl (70-99) H 12/26/18 06:48 POC Glucose 140 (70-99) H 12/26/18 20:39 Estimat Average Glucose 146 mg/dl 12/16/18 15:14 Hemoglobin A1c 6.7 % (4.5-5.6) H 12/16/18 15:14 Calcium 8.5 mg/dl (8.5-10.1) 12/26/18 06:48 Albumin 3.7 gm/dl (3.4-5.0) 12/16/18 15:14 Urine Color Yellow 12/16/18 Unknown Urine Appearance Clear (Clear) 12/16/18 Unknown Urine pH 5.0 (4.5-7.5) 12/16/18 Unknown Ur Specific [place] 1.023 (1.000-1.030) 12/16/18 Unknown Urine Protein Negative (Negative) 12/16/18 Unknown Urine Glucose (UA) Negative (Negative) 12/16/18 Unknown Urine Ketones Negative (Negative) 12/16/18 Unknown Urine Blood Negative (Negative) 12/16/18 Unknown Urine Nitrite Negative (Negative) 12/16/18 Unknown Urine Bilirubin Negative (Negative) 12/16/18 Unknown Urine Urobilinogen Negative (Negative) 12/16/18 Unknown Ur Leukocyte Esterase Negative (Negative) 12/16/18 Unknown Hepatitis C Ab Screen Neg (Neg) 12/26/18 06:48 Blood Type A Positive 12/16/18 15:14 Antibody Screen NEGATIVE 12/16/18 15:14
[2018-12-27] MEDS: BISOPROLOL FUMARATE 5 MG PO SCH (08:43)
[2018-12-27] MEDS: CeleBREX 200 MG CAP PO SCH (08:43)
[2018-12-27] MEDS: INSULIN ASPART 100 UNITS/ML 3 ML PEN SC SCH (08:45)
[2018-12-27] MEDS: ASPIRIN 81 MG ECTAB PO SCH (08:49)
[2018-12-27] MEDS: MAGNESIUM OXIDE 400 MG TAB PO SCH (08:49)
[2018-12-27] MEDS: MULTIVITAMIN TAB PO SCH (08:49)
[2018-12-27] MEDS: DOCUSATE SODIUM 100 MG CAP PO SCH (08:49)
[2018-12-27] MEDS: TOCOPHERYL, DL-ALPHA 400 UNITS CAP PO SCH (08:50)
[2018-12-27] MEDS: FAMOTIDINE 20 MG TAB PO SCH (08:50)
--- NOTE | 2018-12-27 09:36 | Discharge Summary ---
Date of Service date of Discharge: December 27, 2018 Date of Admission: 12/25/18 Admission HPI Per Admitting Provider Rodo is a 58 year old male who complains of right knee pain, presents for pre-op evaluation prior to a Right total knee replacement by dr Stark at [facility]. he complains of pain, crepitus, decreased range of motion, instability and stiffness in the right knee. he states that the symptoms have been chronic and non-traumatic. Rodo states that the symptoms occur constantly with intermittent worsening. Currently the patient states that the symptoms are moderate-severe and rates it as a 6/10. The pain is described as aching, sharp and throbbing. The symptoms occur continuously. The symptoms are aggravated by ascending stairs, daily activities, first steps while awake walking. Prior NSAIDs include Ibuprofen and Aleve. He has been treated with previous visco and cortisone i njections in the past without much relief. he had prior right knee scope, PMM and PLM with chondroplasty in 2015. Principal Diagnosis right knee osteoarthritis Discharge Exam Vital Signs Temp Pulse Pulse Resp BP Pulse Ox 12/27/18 07:37 36.4 C L 60 16 138/78 96 12/26/18 23:22 36.8 C 65 16 133/68 95 12/26/18 16:37 64 131/67 12/26/18 15:18 36.8 C 67 16 148/69 H 94 12/26/18 12:00 36.9 C 59 L 16 142/73 H 94 Intake and Output 12/26/18 12/27/18 12/27/18 22:59 06:59 14:59 Intake Total 240 / 755 Output Total 1200 / 1800 Balance 240 / -1045 -1200 / -1045 Intake: Oral 240 / 755 Output: Urine 1200 / 1800 Constitutional WD/WN, vitals as above no acute distress Musculoskeletal right knee: NVDI, calf SNT, negative kike sign. DP palpable, able to wiggle toes/ankle movement without difficulty. MANJIT dressing clean dry and intact. expected post-operative bruising noted. Discharge Data Allergies Allergy/AdvReac Type Severity Reaction Status Date / Time hydromorphone Allergy Unknown RASH,ITCHIN Verified 12/25/18 09:55 G,SOB moxifloxacin Allergy Unknown TROUBLE Verified 12/25/18 09:55 BREATHING,RASH, VERTIGO Ydkqtum-Yyp-Fjc Reductase AdvReac Unknown "DRAINED Verified 12/25/18 09:55 Inhibitor MY LEGS" Consultations 12/25/18 14:27 Consult Case Management - Discharge Planning Routine Procedures Performed Operation Date: 12/25/18 12:20 Actual Procedures p Right Total Knee Arthroplasty; - Kaushik Stark DO s Left Knee Pes Bursa Cortisone Injection(Left) - Kaushik Stark DO Ordered Studies 12/25/18 05:00 US - OR guided needle placemen Routine Hospital Course (1) Status post total right knee replacement: POD #2 s/p Right TKA pt/ot dvt proph with DAYTON/SCD/ASA plan for d/c home with HHPT when stable, after PT today Patient was a same day admission after undergoing a successful Right TKA. He tolerated the procedure well. Post-operatively, his activity was progressed and well tolerated. Please refer to daily progress notes and PT notes for complete details. After exam on 12/27/17, patient felt to be stable for discharge to home. Patient will f/u in the office in 2 weeks for further evaluation including x- rays and incision check, sooner if having any issues or concerns. Below are pertinent labs/studies during their hospital stay: Laboratory Results WBC 14.04 K/uL (4.8-10.8) H 12/26/18 06:48 RBC 3.58 M/uL (4.7-6.1) L 12/26/18 06:48 Hgb 11.1 g/dL (14.0-18.0) L 12/26/18 06:48 Hct 32.0 % (42-52) L 12/26/18 06:48 MCV 89.4 fL (80-100) 12/26/18 06:48 MCH 31.0 pg (25-34) 12/26/18 06:48 MCHC 34.7 g/dL (32-36) 12/26/18 06:48 RDW Std Deviation 40.4 fL (36.4-46.3) 12/26/18 06:48 RDW Coeff of Demarco 12.5 % (11.5-14.5) 12/26/18 06:48 Plt Count 191 K/uL (130-400) 12/26/18 06:48 MPV 11.7 fL (7.4-10.4) H 12/26/18 06:48 Immature Gran % (Auto) 0.3 % 12/16/18 15:14 Neut % (Auto) 67.3 % 12/16/18 15:14 Lymph % (Auto) 22.7 % 12/16/18 15:14 [place] % (Auto) 7.4 % 12/16/18 15:14 Eos % (Auto) 1.5 % 12/16/18 15:14 Baso % (Auto) 0.8 % 12/16/18 15:14 Immature Gran # (Auto) 0.02 K/uL (0.00-0.02) 12/16/18 15:14 Neut # (Auto) 4.46 K/uL (1.4-6.5) 12/16/18 15:14 Lymph # (Auto) 1.50 K/uL (1.2-3.4) 12/16/18 15:14 [place] # (Auto) 0.49 K/uL (0.11-0.59) 12/16/18 15:14 Eos # (Auto) 0.10 K/uL (0-0.5) 12/16/18 15:14 Baso # (Auto) 0.05 K/uL (0-0.2) 12/16/18 15:14 PT 10.9 Seconds (9.0-12.0) 12/16/18 15:14 INR 1.1 (0.9-1.1) 12/16/18 15:14 APTT 27.0 Seconds (21.0-31.0) 12/16/18 15:14 PTT Ratio 1.0 12/16/18 15:14 Sodium 139 mmol/L (136-145) 12/26/18 06:48 Potassium 4.4 mmol/L (3.5-5.1) 12/26/18 06:48 Chloride 108 mmol/L (98-107) H 12/26/18 06:48 Carbon Dioxide 25 mmol/L (21-32) 12/26/18 06:48 Anion Gap 5.0 (3-11) 12/26/18 06:48 BUN 15 mg/dl (7-18) 12/26/18 06:48 Creatinine 0.88 mg/dl (0.6-1.4) 12/26/18 06:48 Est Cr Clr Drug Dosing 114.4 ml/min 12/26/18 06:48 Est GFR ( Amer) 109.0 12/26/18 06:48 Est GFR (Non-Af Amer) 94.0 12/26/18 06:48 BUN/Creatinine Ratio 17.1 (10-20) 12/26/18 06:48 Glucose 165 mg/dl (70-99) H 12/26/18 06:48 POC Glucose 133 (70-99) H 12/27/18 08:16 Estimat Average Glucose 146 mg/dl 12/16/18 15:14 Hemoglobin A1c 6.7 % (4.5-5.6) H 12/16/18 15:14 Calcium 8.5 mg/dl (8.5-10.1) 12/26/18 06:48 Albumin 3.7 gm/dl (3.4-5.0) 12/16/18 15:14 Urine Color Yellow 12/16/18 Unknown Urine Appearance Clear (Clear) 12/16/18 Unknown Urine pH 5.0 (4.5-7.5) 12/16/18 Unknown Ur Specific [place] 1.023 (1.000-1.030) 12/16/18 Unknown Urine Protein Negative (Negative) 12/16/18 Unknown Urine Glucose (UA) Negative (Negative) 12/16/18 Unknown Urine Ketones Negative (Negative) 12/16/18 Unknown Urine Blood Negative (Negative) 12/16/18 Unknown Urine Nitrite Negative (Negative) 12/16/18 Unknown Urine Bilirubin Negative (Negative) 12/16/18 Unknown Urine Urobilinogen Negative (Negative) 12/16/18 Unknown Ur Leukocyte Esterase Negative (Negative) 12/16/18 Unknown Hepatitis C Ab Screen Neg (Neg) 12/26/18 06:48 Blood Type A Positive 12/16/18 15:14 Antibody Screen NEGATIVE 12/16/18 15:14 Total Time Total Time Spent Total Time Spent (In Minutes): 20 Total Time Includes: Examination of the Patient, Discharge Planning and Medication Reconciliation Discharge Plan Discharge Items Patient Disposition: Home - Home Health Services Reason For Visit: RIGHT KNEE OSTEOARTHRITIS, LEFT KNEE OSTEOARTHRITI Discharge Diagnosis: right total knee replacement Condition: Good Discharge Goals: Decrease discomfort, Improve function and Increase independence Activity: Per 'Additional Instructions' section Lifting: Wait until after follow-up appointment Driving/Machine Use Comment: no driving until cleared by your surgeon Weightbearing Comment: WBAT with walker Call non-emergency contact if: you have any medication questions, your temperature is above 101, your wound has increased redness, your wound has increased drainage and your wound pain has increased Follow-up/Referrals: Kaushik Galdamez M.D. [Primary Care Provider] - Diet: Regular Addtl Provider Instructions: ACTIVITY RECOMMENDATIONS: SELF CARE INSTRUCTIONS AFTER TOTAL KNEE REPLACEMENT A. You may need to continue a physical therapy program after discharge from the hospital. There are several options available to you. Your doctor will assist you in selecting the best one for you. 1. An out-patient facility 2 to 3 times a week for therapy or home therapy. 2. Continue working on all exercises taught to you in the hospital. Your goals should be to increase bending of your knee to 90 degrees and beyond and to fully straighten your knee. B. You may progress at your own pace from walking with a walker or crutches to a cane; then to no assistive devices. C. Make walking a part of your daily routine. Be up as much as comfortable with rest periods throughout the day. Rest with leg elevation is very important. Use the ice wrap frequently for the first 3-4 weeks. D. There are no restrictions on activities. You may ride in a car, shop, participate in separations scientist and all social activities. E. Wear the long elastic stockings (DAYTON hose) 20 hours a day for 2 weeks after surgery. They can be removed several times a day for laundering and for a bath. F. You may shower, no tub baths until cleared by your doctor. SPECIAL CARE INSTRUCTIONS: VERY IMPORTANT TO READ AND REVIEW A. There are a few signs you need to watch for after you are home. Call [facility] if you notice any of the followin. Increased severe knee pain. Some pain is expected especially when you exercise. 2. Increased swelling in your leg or knee; pain or swelling of the calf muscle in either lower leg. 3. Any fluid drainage from the incision. 4. Shortness of breath or chest pain. B. Please call [facility] at if you have any concerns or questions about your operation or recovery. The doctor or his nurse will return your call promptly. C. You must take antibiotics before dental work, bladder, bowel or other surgery. Your doctor will provide you with a permanent care to carry describing this precaution. IMPORTANT: * REMEMBER TO TAKE ASPIRIN, 81 MG, TWICE DAILY FOR 4 WEEKS UNLESS OTHERWISE DIRECTED. THIS IS YOUR BLOOD THINNER. * HIGH RISK PATIENTS MAY BE PRESCRIBED A STRONGER BLOOD THINNER. THIS WILL BE PROVIDED AT DISCHARGE. * CALL IF INCREASED PAIN, REDNESS, DRAINAGE OR FEVER GREATER THAT 101. * WEAR DAYTON HOSE 20 HOURS PER DAY FOR 2 WEEKS. * MANJIT Dressing- This is a large suction dressing covering your incision. This will help pull any excess drainage from the wound and allow your incision to heal properly. You may shower with this if you can keep the unit outside of the shower. If any bleeding or leakage is noted please call your doctor's office. This will remain on your incision for 7 days and then should be removed. This can be done yourself or by the home nursing staff if applicable. The entire unit is disposable once removed. Once removed, keep incision clean and dry. If redness or drainage is noted, please call your surgeon. ONCE MANJIT IS REMOVED, FOLLOW THESE INSTRUCTIONS: DERMABOND Prineo- This is a mesh tape dressing that is covered with glue. It should remain in place until the incision is properly healed, usually 10-14 days. This dressing is designed to naturally slough off. You may trim the excess mesh tape as it peels off. Incision may be briefly wet in a shower. Dry immediately by blotting with a clean, dry towel. Do not bath or swim until instructed by your doctor. Do not scratch, rub, or pick at the dressing. Do not apply any topical ointments or lotions until dressing is completely removed and/or instructed by your doctor. There may be a small piece of suture material at one end of your incision. Do not pull or trim this. If it is bothersome or catching on clothing, you may cover it with a band-aid. IF INCISION IS LEAKING THROUGH DRESSING, CALL THE OFFICE . FOLLOW UP VISIT: If appointment is not already scheduled: Please call [facility] to make a follow-up appointment for 2 weeks after your surgery at . Prescriptions: New acetaminophen [Tylenol Extra Strength] 500 mg Tablet 1,000 mg PO Q8 Qty: 100 RF: 0 celecoxib [Celebrex] 200 mg Capsule 200 mg PO BID 30 Days Qty: 60 RF: 0 aspirin [Ecotrin Low Strength] 81 mg Tablet,Delayed Release (Dr/Ec) 81 mg PO BID 30 Days Qty: 60 RF: 0 oxycodone 5 mg Tablet 5 - 10 mg PO Q6H PRN (Reason: pain) Qty: 30 RF: 0 docusate sodium 100 mg Capsule 100 mg PO BID 10 Days Qty: 20 RF: 0 cefadroxil 500 mg capsule 500 mg PO BID 10 Days Qty: 20 RF: 0 Continued bisoprolol fumarate 5 mg Tablet 5 mg PO QAM RF: 0 famotidine 20 mg Tablet 20 mg PO QAM RF: 0 ergocalciferol (vitamin D2) [Vitamin D2] 50,000 unit Capsule 50,000 unit WK RF: 0 eszopiclone 2 mg Tablet 2 mg PO HS RF: 0 potassium 99 mg Tablet 99 mg PO QAM RF: 0 magnesium 250 mg Tablet 250 mg PO QAM RF: 0 vitamin E 400 unit Capsule 400 unit PO QAM RF: 0 Discontinued acetaminophen [Acetaminophen Extra Strength] 500 mg Tablet 500 - 1,000 mg PO UD PRN (Reason: Pain) RF: 0 Nehemias Back and Body 500-32.5 mg Tablet 1 - 2 tab PO UD PRN (Reason: Pain) RF: 0 Stand-Alone Forms: [employer]/Other Patient Handouts: Diabetes Healthy Meals, Diabetes Exercise Benefits, Diabetes Exercise Get Started, Diabetes Manage A1C Test Discharge Orders: Discharge Order (Routine); Ordered 12/27/18 Ordered By: Awais Spears Admission Data Admit Date/Time: 12/25/18 13:41 Attending Provider: Kaushik Stark Admit Provider: Kaushik Stark Primary Care Provider: Kaushik Galdamez Service: Surgical Services Other Pending Studies at Discharge: No
[2018-12-27] MEDS: OXYCODONE HCL IR 5 MG TAB (IMMEDIATE RELEASE) PO PRN (11:14)
[2018-12-29] MEDS ORDERED: ERGOCALCIFEROL 50,000 UNITS CAP PO SCH (09:00)
== END 2018-12-27 12:04 | disposition home health service (06) | DRG 470 ==
LOC: ASU 09:09 → 3E 13:41
DX: Z88.5 Allergy status to narcotic agent; Z96.652 Presence of left artificial knee joint; Z80.7 Family history of other malignant neoplasms of lymphoid, hematopoietic and related tissues; J45.909 Unspecified asthma, uncomplicated; K21.9 Gastro-esophageal reflux disease without esophagitis; Z87.891 Personal history of nicotine dependence; Z80.42 Family history of malignant neoplasm of prostate; M70.52 Other bursitis of knee, left knee; M17.11 Unilateral primary osteoarthritis, right knee; I10 Essential (primary) hypertension; Z88.1 Allergy status to other antibiotic agents